=== PATIENT | female | born 1965 | race Caucasian/White ===

== ENCOUNTER 2020-04-28 13:22 | Emergency (ER) | payer OTHER ==
[2020-04-28 14:15] VITALS: TEMP 98
[2020-04-28] MEDS ORDERED: KETOROLAC 15 MG/ML 1 ML VIAL IM STA (14:47)
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
--- NOTE | 2020-04-28 15:21 | XR ---
EXAMINATION TYPE: XR thoracic spine complete DATE OF EXAM: 04/28/2020 COMPARISON: NONE HISTORY: Pain TECHNIQUE: 3 views FINDINGS: Thoracic vertebra have fairly normal spacing and alignment. Posterior elements are intact. There is no paraspinal mass. There is no sign of a compression fracture. IMPRESSION: Negative thoracic spine exam.
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
[2020-04-28 16:35] VITALS: BP 128/88; PULSE 68; RESP 19
== END 2020-04-28 16:36 | disposition home or self-care (01) ==
LOC: EC 13:22
DX: S39.012A Strain of muscle, fascia and tendon of lower back, initial encounter (principal); S29.012A Strain of muscle and tendon of back wall of thorax, initial encounter; R51 Headache; V43.92XA Unspecified car occupant injured in collision with other type car in traffic accident, initial encounter; Y92.410 Unspecified street and highway as the place of occurrence of the external cause
CPT/HCPCS: 72072; 72100; 99284; 96372; J1885